=== PATIENT | female | born 1980 | race Caucasian/White ===

== ENCOUNTER 2022-06-24 08:42 | Emergency (ER) | payer BC, SELFPAY ==
[2022-06-24] VITALS (11 sets, daily range): BP systolic 136–167; BP diastolic 78–102; PULSE 72–94; RESP 16; TEMP 36.4–36.8; O2SAT 94–98
--- NOTE | ~2022-06-24 | XR_ITS ---
XR ankle RT min 3V 06/24/2022 09:19 Indication: Right foot pain and swelling Procedure: 4 views right foot Comparison: No prior studies for comparison. Findings: There is an accessory ossicle distal to the fibula. There is mild lateral soft tissue swell ing. Ankle mortise intact. Talar dome is normal. There is a small osteochondroma originating from the medial aspect of the talus which appears benign. No foreign bodies. Impression: 1: No acute bone or joint abnormality. 2: Mild lateral soft tissue swelling. Reviewed, dictated and finalized at location L. TOURNAMENT CONSULTANT Impression: 1: No acute bone or joint abnormality. 2: Mild lateral soft tissue swelling.
--- NOTE | ~2022-06-24 | XR_ITS ---
XR foot RT min 3V 06/24/2022 09:46 INDICATION: Right foot pain PROCEDURE: 4 views right foot COMPARISON: No prior studies for comparison. FINDINGS: Fracture, dislocation or subluxation is not identified. There is mild lateral soft tissue s welling. This evelyn joint intact. There is a corticated ossific density at the base of the fifth meta tarsal consistent with avulsion fracture, age indeterminate. Small osteochondroma originating from th e medial margin of the talus. No foreign bodies are identified. IMPRESSION: 1: Age-indeterminate avulsion from the proximal aspect of the fifth metatarsal. Correlate for point t enderness.. Reviewed, dictated and finalized at location L. AIGN ASSISTANT IMPRESSION: 1: Age-indeterminate avulsion from the proximal aspect of the fifth metatarsal. Correlate for point tenderness..
--- NOTE | 2022-06-24 09:00 | ED.LOWEXIN ---
HPI - Extremity Injury (Lower) General Chief Complaint: Extremity Injury, Lower Stated Complaint: right ankle Time Seen by Provider: 06/24/22 08:59 Source: patient Mode of arrival: ambulatory Limitations: no limitations History of Present Illness HPI Narrative: Patient is a 41 y/o female who presents to the ED with c/o R ankle pain. Patient reports she went to take her dog out in the middle of the night last night and tripped walking down the steps. She rolled her right ankle, she thinks the ankle rolled outward. She complains of pain and swelling to her lateral right ankle. She has been able to ambulate since the fall, but complains of pain with this. No other injuries. No numbness, tingling. Patient states she did slightly hit her head against the railing at the end of the fall, but denied any LOC, direct impact, dizziness, lightheadedness, nausea, vomiting, headache, neck pain, vision changes. Related Data Home Medications Medication Instructions Recorded Confirmed escitalopram oxalate 20 mg tablet 20 mg PO DAILY 02/21/20 (Lexapro) levothyroxine 50 mcg tablet 50 mcg PO DAILY 02/21/20 allopurinol 100 mg tablet 100 mg PO DAILY 04/02/21 multivitamin (Daily Multi-Vitamin 1 tablet PO DAILY 04/02/21 tablet) Allergies Allergy/AdvReac Type Severity Reaction Status Date / Time Penicillins Allergy Intermediate Unknown Verified 04/02/21 09:43 sulfacetamide Allergy Unknown Unknown Verified 04/02/21 09:43 Review of Systems Review of Systems: CONSTITUTIONAL: Denies fever, chills, or sweats. MUSCULOSKELETAL: See HPI. NEUROLOGIC: See HPI. All systems reviewed & are unremarkable except as noted in HPI and below PMFSH Past Medical History Medical History Anxiety High uric acid in 24 hour urine specimen Hypothyroidism Surgical History Surgical History History of colonoscopy 1999 History of colposcopy Family History Family History Grandparent Breast cancer Social History Social History Smoking status: Never smoker Alcohol intake: current Substance use: current Substance use type: marijuana Exam Narrative: GENERAL: Well appearing, morbidly obese, non-toxic, in no acute distress. HEAD: Normocephalic, atraumatic. NECK: Supple. No adenopathy, no masses. RESPIRATORY: Airway patent, respirations nonlabored. Clear to auscultation bilaterally, no rales, rhonchi, wheezing. CARDIOVASCULAR: Regular rate and rhythm without murmurs, rubs, or gallops. Pedal pulses 2+ and equal bilaterally. MUSCULOSKELETAL: Limited range of motion of the right ankle joint due to pain. Significant swelling to lateral malleoli and extending into lateral anterior ankle/foot. Tenderness to palpation along proximal fifth metatarsal, right lateral ankle mortise, and diffusely along lateral malleoli. Sensation intact. SKIN: Warm, dry, normal color. No rashes. NEURO: A&O X3. Speech clear. Cranial nerves II-XII grossly intact. Steady gait. No ataxic movements. PSYCHIATRIC: Appropriate mood and affect. Normal interaction. Course Vital Signs Vital signs: Vital Signs Temperature 97.6 F 06/24/22 08:45 Pulse Rate 94 06/24/22 08:45 Respiratory Rate 16 06/24/22 08:45 Blood Pressure 137/102 H 06/24/22 08:45 Pulse Oximetry 95 06/24/22 08:45 Temperature 97.6 F 06/24/22 08:45 Pulse Rate 94 06/24/22 08:45 Respiratory Rate 16 06/24/22 08:45 Blood Pressure 136/78 06/24/22 09:32 Pulse Oximetry 95 06/24/22 09:32 MDM - Extremity Injury (Lower) MDM Narrative Medical decision making narrative: Patient's injury is consistent with musculoskeletal etiology. No signs of neurologic or vascular compromise on physical examination. Compartments are soft without signs of com
== END 2022-06-24 10:46 | disposition home or self-care (01) ==
PROVIDERS: Emergency Provider Physician Assistant; PCP Nurse Practitioner Family
DX: S92.354A Nondisplaced fracture of fifth metatarsal bone, right foot, initial encounter for closed fracture (principal); S93.401A Sprain of unspecified ligament of right ankle, initial encounter; W10.9XXA Fall (on) (from) unspecified stairs and steps, initial encounter; E03.9 Hypothyroidism, unspecified; F41.9 Anxiety disorder, unspecified; F12.90 Cannabis use, unspecified, uncomplicated
CPT/HCPCS: 73610; 73630; 99284